=== PATIENT | male | born 1940 | race Caucasian/White ===

== ENCOUNTER 2016-05-12 02:02 | Inpatient (IN) | payer MEDICARE, OTHER ==
[~2016-05-12] VITALS: Ht 180.3 cm; Wt 82.5 kg
[2016-05-12] VITALS (24 sets, daily range): BP systolic 109–198; BP diastolic 62–122; PULSE 52–109; RESP 14–20; O2SAT 95–99
[2016-05-12] MEDS ORDERED: MeTOProlol 1 mg/mL 5 mL Inj ONE (02:14)
[2016-05-12] MEDS ORDERED: Nitroglycerin 2% 1 Gm Ointment TOPICAL ONE (02:14)
[2016-05-12] MEDS ORDERED: Heparin 25,000 Unit/500 mL 0.45% NS Premix IV ONE (02:14)
[2016-05-12] MEDS ORDERED: Nitroglycerin 50,000 mcg/250 mL D5W Premix IV ONE ×2 (02:14→02:42)
[2016-05-12] MEDS ORDERED: Ondansetron 2 mg/mL 2 mL Inj ONE ×2 (02:15→03:27)
[2016-05-12] MEDS ORDERED: Tirofiban 12.5 mg/250 mL NS Premix IV ONE (02:15)
[2016-05-12] MEDS ORDERED: Heparin 5,000 Unit/mL Inj ONE (02:16)
[2016-05-12] MEDS ORDERED: 0.9% Sodium Chloride 1,000 ML IV ONE ×2 (02:16→05:50)
--- NOTE | 2016-05-12 02:22 | ED.REPORT ---
HPI-Chest Pain 40 and Over Date of Service May 12, 2016 ED Provider: Aaron Cheek MD Patient is a 75 year old male with a history of coronary artery disease, hypertension, and diabetes mellitus who presents to the ED after he awoke from sleep with back pain 30 minutes prior to arrival. He reports radiation of his pain to his left shoulder but denies any actual chest pain. The patient states that he had a similar brief episode last week, which resolved. His pain is similar to what he experienced 20 years ago when he was previously diagnosed with angina. He reports associated shortness of breath but denies nausea, vomiting, or diaphoresis. He became nauseated shortly after arrival but did not vomit. Nursing Notes Stated Complaint: POSS ANGINA Chief Complaint: Chest Pain Nursing Notes Reviewed: Yes Allergies: Coded Allergies: EMIR Inhibitors (Verified Adverse Reaction, Intermediate, 05/12/16) cough General Time Seen by MD: 02:18 Chief Complaint Back pain Hx Obtained From: Patient Arrived By: Walk-in Sudden in Onset?: No Onset Occurred: 16 - 30 minutes ago Symptom Duration: Since onset Location: : Back Quality: Painful Radiation: : Shoulder left Severity: Current: Moderate Severity: Maximum: Severe Recent Healthcare: No recent hospitalization Similar Sx Previous: Yes Past Medical History Past Medical History coronary artery disease (?with prior MO and stenting 20 years ago per patient) Reports: Coronary artery disease, Diabetes mellitus, Hypertension, Denies: Stroke Past Surgical History cardiac stent 20 years ago Smoking History Never Smoker Social History Alcohol Use: Denies alcohol use Other Social History: Good social support, , Local resident Ambulatory Status Independent Review of Systems Respiratory: Reports: Shortness of breath, Denies: Non-productive cough Cardiovascular: Denies: Chest pain GI: Denies: Nausea, Vomiting Musculoskeletal: Reports: Back pain, Extremity pain Skin: Denies Diaphoresis Complete sys rev & neg: except as marked. Physical Exam Initial Vital Signs Vital Signs (First) Date Time Temp Pulse Resp B/P Pulse Ox O2 Delivery O2 Flow Rate FiO2 05/12/16 02:03 36.1 93 16 185/122 96 Room Air Initial VS: Reviewed Head / Eyes: Atraumatic, Normocephalic, PERRL ENT: Conjunctiva normal, No scleral icterus Neurologic: Alert, Oriented, Nonfocal Psychiatric: Mood/affect normal, Behavior normal, Normal thought content General/Constitutional: Awake, Alert Appearance / Presentation: Positive: Ill appearing/not toxic, Pale Respiratory / Chest: Breath sounds NL, Breath sounds = bilat, No respiratory distress, No rales, No rhonchi, No wheezing, No chest tenderness Cardiovascular: Heart rate NL, Regular rhythm, Heart sounds NL, No murmurs Abdomen: Soft, Non-tender Neck: Supple, No JVD Lower Extremity / Pelvis / MS: No swelling, No edema Skin: Warm Color / Condition: Positive: Diaphoresis present Upper Extremity / MS: No swelling, No edema Interpretation & Diagnostics Lab Results Interpretation Result Diagram: 05/12/16 0220 05/12/16 022 Test 05/12/16 02:20 White Blood Count 12.3th/mm3 (3.8-10.1) Red Blood Count 4.41mil/mm3 (4.40-5.80) Hemoglobin 14.5g/dL (13.8-17.2) Hematocrit 43.1% (41.0-50.0) Mean Corpuscular Volume 97.7fL (81-100) Mean Corpuscular Hemoglobin 32.9pg (27.0-35.0) Mean Corpuscular Hemoglobin Concent 33.6% (32.0-37.0) Red Cell Distribution Width 12.7% (12.3-15.4) Platelet Count 186bil/L (150-400) Neutrophils (%) (Auto) 36.7% (40-74) Lymphocytes (%) (Auto) 53.0% (14-46) Monocytes (%) (Auto) 7.5% (4-12) Eosinophils (%) (Auto) 2.2% (0-5) Basophils (%) (Auto) 0.4% (0-3) Prothrombin Time 10.2sec (8.1-12.5) Prothromb Time International Ratio 0.95ratio Activated Partial Thromboplast Time 23.8sec (22.8-33.0) Sodium Level 144mEq/L (134-144) Potassium Level 3.7mEq/L (3.5-5.2) Chloride Level 104mEq/L (97-108) Carbon Dioxide Level 25mmol/L (18-29) Blood Urea Nitrogen 27mg/dL (8-27) Creatinine 1.27mg/dL (0.76-1.27) Estimat Glomerular Filtration Rate 59mL/min (>59) Glucose Level 165mg/dL (60-99) Calcium Level 9.5mg/dL (8.5-10.1) Magnesium Level 1.2mg/dL (1.6-2.6) Total Bilirubin 0.4mg/dL (0.0-1.2) Aspartate Amino Transf (AST/SGOT) 21U/L (0-50) Alanine Aminotransferase (ALT/SGPT) 18U/L (0-44) Alkaline Phosphatase 68U/L (25-160) Troponin T 0.010ug/L (0.0-0.011) Pro-B-Type Natriuretic Peptide 168pg/mL (0-376) Total Protein 7.3g/dL (6.4-8.4) Albumin 4.4g/dL (3.4-5.0) Hold Warner Top Tube Received (Received) ECG Interpretation ECG Interpretation: Inferior-posterior wall acute STEMI. Atrial fibrillation, Rate 102 Time: 02:14 Interpreted by: ED physician X-Ray Chest Interpretation View: Portable Interpretation / Wet Read by: Wet read ED physician NL X-Ray Chest Findings: No infiltrate, Normal mediastinum, No acute disease Re-Eval/Medical Decision Med Decision/Clinical Course 75-year-old man with a remote history of angina or MO that presented with atypical pain and back pain primarily. He presents now with the same but with obvious changes of inferior posterior wall transmural MO. Cath team was summoned and was here promptly. He is transported to the clam bed laborer for intervention. X-ray shows a normal-appearing mediastinum and no evidence of dissection. Heparin was begun after that was known to be normal. His pain is improved to nearly gone was some residual shoulder pain only. Blood pressure is improved from quite hypertensive to a fairly normal value by the time of transfer. He received metoprolol but no nitroglycerin, given the right-sided nature of his MRI. He received Plavix aspirin and heparin. He experienced a run of sustained V. tach without syncope and that was terminated with lidocaine. He was then given amiodarone 150 mg. He has had a few nonsustained V. tach runs of three and four beats immediately after the initial episode. At that point, he is transported to the clam bed laborer. His troponin initially is normal. Magnesium was quite low at 1.2. This was communicated to the Tile Layer Helper. Other labs basically unremarkable. Source of Hx: Old records Time of Eval: 02:20 Re-Evaluation/Progress Note: Informed the patient that he is having an acute MO. The construction recruiter has been called and he will go the clam bed laborer. Patient understands and agrees with this plan. All questions were addressed. Time of Eval: 02:44 Re-Evaluation/Progress Note: Patient is in V-tach. Pads placed. Patient reports feeling light headed. Given Amiodarone and Lidocaine, now patient is only intermittently in V-tach. Patient now states that he has previously had a MO and cardiac stenting 20 years ago, which he previously states was what he experienced with angina. Time of Eval: 02:55 Re-Evaluation/Progress Note: Patient to clam bed laborer. Consultation #1: Referral / Consult Name: Isma Silva MD Consulted With: Cardiology Call Returned at: 02:16 Sugar Mixer: Will see patient, Agrees with eval, Agrees with plan, Requested clam bed laborer Note: Spoke with Dr. Silva, construction recruiter, about the patient's EKG. He is enroute to the ED and requests the clam bed laborer. Consultation #2: Referral / Consult Name: Isma Silva MD Consulted With: Cardiology Call Returned at: 02:40 Note: Dr. Silva is present at bedside. Counseled Regarding: Diagnosis, Lab results, Need for admission Discharge & Departure Primary Impression: Acute ST elevation myocardial infarction (STEMI) Involved coronary artery: unspecified coronary artery Qualified Code: I21.3 - ST elevation (STEMI) myocardial infarction of unspecified site Additional Impression: Ventricular tachycardia Disposition: ADMITTED TO HOSPITAL Discharge Condition All VS Reviewed: Yes Condition: Stable Referrals: OTHER,PHYSICIAN Crit Care Except Billable Proc Time Spent: 30-74 minutes Services Performed: Patient management by me, Time spent at bedside, Reviewing test results, Reviewing imaging, Discussing patient care, Documentation in record, Time with fam/surrogate Scribe Attestation Portions of this note were transcribed by Rosalva Brown. I, Dr. Cheek personally performed the history, physical exam and medical decision-making; I reviewed and confirmed the accuracy of the information in the transcribed note. Signed by: Bryson Cleary, 05/12/2016 0258 copies to: OTHER,PHYSICIAN Aaron Cheek MD May 12, 2016 02:22 Rosalva Brown May 12, 2016 02:26
[2016-05-12] MEDS ORDERED: fentaNYL-PF 50 mCg/mL 2 mL Inj ONE ×3 (02:24→04:30)
[2016-05-12 02:29] LABS: BASOPHILS % (AUTO) 0.4 % (0-3); EOSINOPHILS % (AUTO) 2.2 % (0-5); MONOCYTES % (AUTO) 7.5 % (4-12); Mean Corpuscular Hemoglobin 32.9 pg (27.0-35.0); Mean Corpuscular Volume 97.7 fL (81-100); NEUTROPHILS % (AUTO) 36.7 % (40-74); Platelet Count 186 bil/L (150-400)
[2016-05-12] MEDS ORDERED: Heparin 1,000 Units/500 mL NS Premix IV ONE (02:42)
[2016-05-12] MEDS ORDERED: 0.9% Sodium Chloride 1,000 ML ONE (02:42)
[2016-05-12] MEDS ORDERED: Heparin 5,000 Units/500 mL NS Premix IV ONE (02:43)
[2016-05-12] MEDS ORDERED: Heparin 1,000 Unit/mL 10 mL Inj ONE (02:43)
[2016-05-12] MEDS ORDERED: NitroPRUSSIDE 25,000 mCg/mL 2 mL Inj IV ONE (02:43)
[2016-05-12] MEDS ORDERED: 0.9% Sodium Chloride 250 ML ONE (02:43)
[2016-05-12 02:52] LABS: INR 0.95 ratio
[2016-05-12 03:04] LABS: TROPONIN T 0.01 ug/L (0.0-0.011)
[2016-05-12 03:21] LABS: Magnesium 1.2 mg/dL (1.6-2.6)
[2016-05-12] MEDS ORDERED: Atropine 1 mg/10 mL (Code) Syringe ONE (03:24)
[2016-05-12] MEDS ORDERED: Amiodarone 150 mg/100 mL D5W Premix IV ONE (03:33)
[2016-05-12] MEDS ORDERED: Atropine 1 mg/10 mL (Code) Syringe IVPUSH PRN (05:50)
[2016-05-12] MEDS ORDERED: Ondansetron 2 mg/mL 2 mL Inj IVPUSH PRN (05:50)
[2016-05-12] MEDS ORDERED: Sodium Chloride LOK Flush 10 mL Syringe IVFLUSH PRN (05:50)
[2016-05-12] MEDS ORDERED: 0.9% Sodium Chloride 250 ML BOLUS IV PRN (05:50)
--- NOTE | 2016-05-12 06:46 | NUR ---
Admit note: pt received into room 2016 at 0530 per bed from laborer yard. Pt is awake and alert at bedside accompanied by Dr Silva. Bedside report received from laborer yard staff mor barbosa. O2 was applied to pt For SPpo2 of 91% 2L/M per NC spo2 increased to 99%. Pt instructed to keep right leg straight. Pt was able to void per urinal.
--- NOTE | 2016-05-12 07:56 | CS94 ---
[address] [address] DIAGNOSTIC CARDIAC CATHETERIZATION PATIENT: ROSS HAND : 1940 MR #: [id number] ADMIT: 05/12/2016 JOB ID: [id number] PROCEDURE NOTE--CARDIAC CATHETERIZATION LABORATORY:: DATE OF PROCEDURE: Thursday, May 12, 2016. RESEARCH KENNEL SUPERVISOR: Isma Silva MD PROCEDURES: 1. Coronary Angiogram--Emergent. 2. Percutaneous Ccoronary Intervention (PCI): a. ROMAINE of Distal, Mid and Proximal RCA. CLINICAL DETAILS: This 75-year-old man presented to the Emergency Department 1 hour after the onset of interscapular back pain. ECG showed marked inferior ST elevation with ST depression in Leads V1, and V2; and with atrial fibrillation. In the Emergency Department he had sustained ventricular tachycardia at 133 BPM without loss of consciousness. He has a history of a prior angioplasty in [place] probably in the . PROCEDURAL DETAILS: I evaluated him in the Emergency Department. I discussed the findings, impressions, and management considerations with him and his including recommendation for emergent coronary angiogram, and anticipated PCI. We discussed the procedure including possible risks and complications. In the emergent setting we discussed bleeding, arrhythmia, and injury to kidneys. We discussed possible more serious complications including the life-threatening risk of his illness and the risk of stroke, heart attack, --or Others. After discussion and questions, he signed informed consent to proceed. He was brought to the Catheterization Laboratory where he was prepped sterilely and draped. CORONARY ANGIOGRAM: Arterial access was obtained without difficulty in the right common femoral artery using fluoroscopic localization over the femoral head and modified Seldinger technique to insert a 10 cm 6-Montenegrin side-arm sheath. Catheters were advanced and exchanged over a long 0.035 inch J tipped guide wire. First the left coronary artery was imaged using a 6-Montenegrin JL-4 catheter; and then the right coronary artery was imaged using a 6-Montenegrin JR-4 guide catheter. LV not entered. PCI OF DISTAL MID, AND PROXIMAL RCA: The diagnostic images were reviewed. Decision was made to proceed with emergent PCI of the culprit occluded Distal RCA. In the Emergency Department he had received Aspirin 325 mg chewed; as well as Heparin IV bolus; and Lidocaine 100 mg IV; and Amiodarone 150 mg IV. During the Interventional procedure he received bolus Heparin IV to achieve therapeutic ACT; as well as loading dose of Prasugrel 60 mg p.o.; and aliquots of NTG IC as needed. He had recurrent sustained ventricular tachycardia at 133 BPM without loss of consciousness which was treated with additional amiodarone 150 mg IV. The JR-[address] was used for the Intervention. The lesion was crossed without difficulty with a BMW wire--0.014 inch x 190 cm--which was placed in the Distal Right Posterolateral Branch. The artery was opened with a Trek Balloon--2.5 x 15 mm-inflated across the site of occlusion to 6 atmospheres. The artery was opened. His back pain cleared. There was no further ventricular tachycardia. ST-segment elevation on monitor leads resolved. Regarding door to balloon time , note that extra time was required in the Emergency Department to manage his sustained ventricular tachycardia; and also for decision making regarding the question that developed regarding possible aortic dissection because of his back pain. Estimated door to balloon time was 86 minutes. STENT: After the artery was opened there was a 95% tubular residual distal RCA lesion at the site of initial occlusion. This was treated with a Xience Stent--2.75 x 18 mm--deployed across the lesion at 16 atmospheres. Attention was turned to a diffuse distal bifurcation 80% lesion at the crux with TIARA-3 flow. I elected not to treat this complicated lesion at that this time. Next attention focused on an apparent filling defect within the stent. This was monitored, but appeared worse over time, and despite balloon inflation. It was treated with a 2nd stent overlapping proximally to cover this defect as well as proximal irregularity using a Xience Stent--2.75 x 18 mm--deployed at 18 atmospheres. The initial Stent had been post dilated with a noncompliant Trek NC Balloon--3.0 x 12 mm--inflated to 18 atmospheres. Next attention was turned to the a diffusely diseased segment of Mid and Proximal RCA which was highly irregular, but appeared more irrregular now. I elected to treat this with a Xience Stent--3.5 x 28 mm--which was deployed to cover this 70% narrowed and irregular area in the Mid and Proximal RCA to near the RCA ostium. This Stent was post dilated with several inflations of a noncompliant Trek NC balloon--4.0 x 12 mm--inflated to 18 atmospheres. There was an excellent final angiographic result with no residual lesion, TIARA-3 flow, and no angiographic complication evident. Procedure without difficulty. Patient tolerated procedure well. No complications. A side-arm sheath angiogram showed adequate access for a closure device. Arterial hemostasis was obtained without difficulty using a Perclose device. The patient was transferred, stable, improved, and pain free from the Catheterization Laboratory to the CCU for ongoing care including by the primary Hospitalist service. I discussed the procedure, findings, and recommendations with the patient and his ; as well as with the Hospitalist Team; and with Cardiology. FINDINGS: 1. LMCA: The left main coronary artery has no obstructive disease; but there is moderate diffuse atherosclerotic plaquing. 2. LAD: The left anterior descending coronary artery tapers distally to reach the apex as a faint vessel. There is a diffuse 80% proximal lesion at the first septal and at the takeoff of a moderate to large (2.5 mm) diagonal. 3. LCX: The left circumflex coronary artery is a large nondominant vessel with a diffuse 70-80% Mid LCX lesion with TIARA-3 flow. 4. RCA: Dominant. The right coronary artery is a very large vessel with a large posterolateral branch, and a large PDA branch that reaches the apex. The RCA has extensive disease throughout. Initially the artery is occluded distally after the acute margin. There is also 70% diffuse Proximal, and Mid RCA disease; and a diffuse lesion Distal to the culprit occlusion, including a tubular 80% narrowing at the at the crux at the bifurcation of PDA and PLB. CONCLUSIONS: 1. PCI with ROMAINE of Distal RCA (Xience 2.75 x 18 mm; then Xience 2.75 x 18 mm); and Xience ROMAINE of Mid and Proximal RCA (3.5 x 28 mm). 2. ACS--Inferior STEMI; with sustained Ventricular Tachycardia. 3. Coronary Artery Disease (CAD)--3-Vessel CAD including Proximal LAD at bifurcation of Diagonal; and Mid LCX; and severe diffusely diseased RCA with a culprit distal RCA occlusion. RECOMMENDATIONS: 1. Aspirin--Indefinitely. 2. Prasugrel--Plan 1 year if well tolerated including with ongoing cardiology follow-up; and to consider lifetime DAPT in view of long stented segments and severe diffuse disease. I discussed with the patient and his the critical importance of mandatory dual antiplatelet therapy and not to miss Plavix for any reason without immediate Cardiology consultation. 3. Echo. 4. OMT--guideline directed optimal medical therapy including aspirin, Prasugrel, statin, beta-kraig, and EMIR inhibitor. 5. Replete low Mg. 6. Hydrate; and monitor I and O and Creatine post contrast. 7. Follow-Up to consider revasculariztion of his Three Vessel CAD including residual Distal RCA; and Proximal LAD; and LCX. May consider staged PCI, or CAB. LEVI
--- NOTE | 2016-05-12 08:59 | CONS ---
[address] [address] CONSULTATION REPORT PATIENT: ROSS HAND : 1940 MR# : [id number] ADMIT: 05/12/2016 JOB ID: [id number] CARDIOLOGY CONSULTATION NOTE--INITIAL CRITICAL CARE EVALUATION (EMERGENCY DEPARTMENT): DATE OF SERVICE: Thursday, May 12, 2016 EVALUATING PHYSICIAN: Cardiology--Isma Silva MD PROBLEMS: 1. Acute coronary syndrome (ACS): a. STEMI--Acute inferior ST-elevation myocardial infarction. b. Atypical symptoms--primarily interscapular back pain; ischemic time 1 hour until presentation. 2. CORONARY ARTERY DISEASE (CAD): a. History of prior angioplasty twice--by Dr. Nye in ; approximately in the (No details available).. CAD RISK FACTORS: 1. Diabetes--Metformin treated; with sequelae including peripheral neuropathy. 2. Hypertension--Treated. 3. Hyperlipidemia--Statin treated. 4. Cigarettes--Lifetime Nonsmoker. 5. Family History: Noncontributory. CHIEF COMPLAINT: 1. "STEMI."--Called for District Manager Activation. 2. Back Pain. 3. Abnormal ECG--Inferior ST Elevation. HISTORY OF PRESENT ILLNESS: EMERGENCY DEPARTMENT: This 75-year-old man had his drive him to the Emergency Department this morning 1 hour after the onset of interscapular back discomfort that he reports moderate to severe in intensity; like his prior "heart attack" many years ago. The pain radiates around his shoulders and then there may be some less prominent anterior chest discomfort. Now his chest discomfort has moderated somewhat. In the Emergency Department, he was treated with aspirin 325 mg chewed; and heparin IV bolus. Because of his prominent back pain (which was not ripping or tearing in quality) a diagnosis of aortic dissection was considered, but thought not likely; including because the Chest x-ray did not show widened mediastinum. In the Emergency Department, he also had sustained ventricular tachycardia at 130-150 BPM, which was mostly well tolerated with some lightheadedness. He received lidocaine 100 mg IV; and amiodarone 150 mg IV. PAST CARDIAC HISTORY: He has been generally doing well, without known active heart disease. He is quite active for his age including carrying wood for the fireplace in a wheelbarrow up and down several steps to the deck He has no effort-related symptoms, and no effort limitation. He does not have any other preceding anginal symptoms. He does not have symptoms of heart failure such as nocturnal dyspnea or edema. He does not have history of arrhythmia such as atrial fibrillation or other arrhythmic symptoms including tachy palpitations, presyncope or syncope. He reports he had a heart attack--probably in the --treated by Dr. Nye at [facility]. He says that after an initial angioplasty was done, he had to return sometime later for a second procedure. He understands he had angioplasty without stents. He was followed by Dr. Nye; and last saw him about five years ago. He has not had any active cardiac issues in recent years. Regarding other possible underlying vascular disease, he does not have history of CVA or current symptoms of TIA. No claudication. Regarding possible dual antiplatelet therapy, he reports he would be reliable to take mandatory medicines if needed; he has no anticipated upcoming surgery; he has no current bleeding symptoms. ALLERGIES: 1. LISINOPRIL-Intolerant due to a cough. 2. No known drug allergies. 3. I elicit no history of allergy to medical contrast or to seafood, fish or iodide. MEDICINES: He does not know all as medicines but they include: 1. Atenolol for hypertension. 2. Simvastatin last taken last night--probably 20 mg. 3. Metformin b.i.d. 4. ASA 81 mg daily. 5. Doxazosin--For HTN. He holds the dose if it lowers his blood pressure too much. PAST MEDICAL HISTORY: 1. Possible Chronic renal insufficiency--He saw a heel nail rasper in [place] in the past. REVIEW OF SYSTEMS: I questioned him and his in the emergent setting about a 13 point review of systems which is unremarkable, noncontributory, or negative except as noted includin. No history of thyroid disorder. 2. No history of lung disorder. 3. No history of GI disorder including jaundice or ulcer. 4. He has a history of hepatitis A in the remote past. 5. He has a history of some indigestion which is different from his current symptoms. PERSONAL AND SOCIAL HISTORY: Cigarettes--Lifetime Nonsmoker. ETOH--He reports he drinks; but not large amounts. 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 Family--He lives with his ; and they are planning an extensive cruise(25 days) by ship to [place] and [place] at the end of April. FAMILY HISTORY: Status of premature coronary disease in the family unclear in the emergent setting. PHYSICAL EXAMINATION: GENERAL APPEARANCE: Pleasant elderly man who appears mostly comfortable in the emergency department. VITAL SIGNS: Hypertensive with Blood pressure 168/95, heart rate 77 and irregularly irregular with atrial fibrillation on telemetry, respiratory rate 18, unlabored; SpO2 95%. NEUROLOGIC AND MENTAL STATUS: No overt focal neurologic defect noted. He is alert, oriented, appropriate and conversant. HEENT : PERRL. Conjunctivae pink. Sclerae not icteric. Mouth and mucous membranes intact with Mallampati 4. NECK: Carotid upstroke intact bilaterally without bruit. Jugular venous pressure unremarkable. Examined supine. No palpable thyromegaly. No palpable cervical lymphadenopathy. LUNGS: Clear to auscultation bilaterally. Examined supine. CARDIAC: No chest wall tenderness. Otherwise unremarkable cardiac examination with no loud murmur. ABDOMEN: Flat and otherwise unremarkable without tenderness, mass, hepatosplenomegaly or bruit of abdominal aortic aneurysm. EXTREMITIES: Bilateral femoral pulses intact; and the dorsalis pedis pulses are present bilaterally. DIAGNOSTIC STUDIES: ELECTROCARDIOGRAM: I reviewed the emergency department ECG which shows atrial fibrillation, with a controlled ventricular rate 77 BPM. There is marked inferior ST elevation with ST depression in lead V2. There are deep Q-waves which are consistent with inferior myocardial infarction; and consistent with his history of prior myocardial infarction. CHEST X RAY: I reviewed the chest x-ray film which shows cardiomegaly but no pulmonary venous hypertension or other findings of heart failure. Regarding the question of aortic dissection the mediastinum does not appear widened. LABORATORY: Laboratory reports returned during the procedure. They include: CBC includes WBC 12,300, with hemoglobin 14.5, hematocrit 45.1, normal indices and platelet count 186,000. Chemistries include potassium 3.7, BUN 27, creatinine top normal 1.27 with estimated GFR 59. Glucose 165. Magnesium very low 1.2. Unremarkable liver function tests and initial troponin negative less than 0.010 as well as BNP not elevated 168. ASSESSMENT: I discussed my findings, impressions, and management considerations with the patient and his as well as with the Emergency Department physician; and later with the admitting Hospitalist Service includin). ACUTE CORONARY SYNDROME; STEMI; inferior myocardial infarction with sustained ventricular tachycardia:. He presents with atypical symptoms(back pain) that raised a question of aortic dissection; but the overall picture is most consistent with myocardial infarction with primarily back pain and overt inferior ST elevation. His clinical course is complicated by sustained ventricular tachycardia. However, this resolved spontaneously and/or with pharmacologic therapy; and was overall well tolerated. I discussed the recommendation to proceed to emergent cardiac catheterization and anticipated percutaneous coronary intervention. The clinical scenario suggests occlusion of the right coronary artery. The ECG suggests that his history of prior myocardial infarction was an inferior infarct with Q-waves. RECOMMENDATIONS: 1. Cardiac catheterization and anticipated PCI-Emergent; we proceeded to the Catheterization Laboratory. 2. Admit to Hospitalist Service. 3. Echocardiogram. 4. OMT--guideline directed optimal medical therapy including dual antiplatelet therapy, beta-kraig, statin and later EMIR inhibitor. 5. Ongoing evaluation and monitoring--including for the question of aortic dissection (appears unlikely). 6. Replete low Mg++(note a repeat Mg level confirmed low Mg).. ECHO: I briefly reviewed selected images at the bedside as the the Echo was being done. Note overall moderate to severely decreased global LVSF with estimated EF=35-40%. Large Inferior and InferoLateral akinesis c/w his two RCA infarcts. MTDD
[2016-05-12] MEDS ORDERED: Lidocaine PF 1% 5 mL Inj ONE (09:22)
[2016-05-12] MEDS ORDERED: Amiodarone 50 mg/mL 3 mL Inj ONE (09:22)
--- NOTE | 2016-05-12 09:31 | DRSVH ---
PROCEDURE: X-RAY CHEST ONE VIEW, PORTABLE ([id number]) INDICATIONS: CHEST PAIN TECHNIQUE: One view of the chest was acquired. COMPARISON: None. FINDINGS: Surgical changes and devices: None. Lungs and pleura: No pleural effusions or pneumothorax. Lungs are clear. Mediastinum: Mediastinal contours appear normal. Heart size is normal. Bones and chest wall: No suspicious bony lesions. Overlying soft tissues appear unremarkable. IMPRESSION: No acute cardiopulmonary disease. Dictated by: Pk COBB Interpreted: Blanca Stanley MD on 05/12/2016 at 9:31 Transcribed by: ADRIAN on 05/12/2016 at 9:31 Approved by: Blanca Stanley M.D. on 05/12/2016 at 16:11
[2016-05-12] MEDS ORDERED: Magnesium Sulf 4 Gm/100 mL H2O 4 GM in IV Premix 1 EACH IV ONE (09:40)
--- NOTE | 2016-05-12 14:19 | DRSVH ---
[facility] [address] [place] [address] Echocardiogram Report Name: ROSS HAND MStudy Date: Height: 71 in Hospital Exam Location: [facility] Weight: 182 lb Gender: Male BSA: 2.0 m2 : 1940 Age: 75 yrs BP: 144/76 mmHg Reason For Study: STEMI History: SD Ordering Physician: Performed By: Diana Reina Interpretation Summary 1) Mild concentric ventricular hypertrophy with normal size and severely reduced systolic function (EF 25-30%). 2) Dyskinesis of the entire apex, akinesis of the posterolateral wall, mid to distal inferior wall, and apical anterior wall, and severe hypokinesis of the anterolateral wall. 3) Normal right ventricular size and function. 4) No significant valvular abnormalities. 5) Mildly dilated aortic root (diameter 4.4cm) and ascending aorta (diameter 4.1cm) 6) Findings consistent with ischemic cardiomyopathy. 7) No prior Echo available for comparison. Procedure: A two-dimensional transthoracic echocardiogram with color flow and Doppler was performed. The study quality was technically adequate. There is no prior echocardiogram noted for this patient. A contrast injection of Definity was performed to improve assessment of LV function. No complications noted with contrast. The subcostal views were not obtained due to lack of acoustic window. Left Ventricle: The left ventricle is normal in size. There is mild concentric left ventricular hypertrophy. There is no thrombus. The ejection fraction is estimated to be 25-30%. Left ventricular systolic function is severely reduced. Dyskinesis of the entire apex, akinesis of the posterolateral wall, mid to distal inferior wall, and apical anterior wall, and severe hypokinesis of the anterolateral wall. Assessment of diastolic parameters suggests a pseudonormalization pattern, consistent with elevated filling pressures. Right Ventricle: The right ventricle is normal in size and function. Atria: The left atrium is mildly dilated. Right atrial size is normal. The interatrial septum is intact with no evidence for an atrial septal defect. There is no Doppler evidence for an interatrial shunt. Mitral Valve: The mitral valve leaflets appear borderline thickened, but open well. The mitral valve leaflets are slightly calcified. There is trace mitral regurgitation. Aortic Valve: The aortic valve is normal in structure and function. No aortic regurgitation is present. Tricuspid Valve: The tricuspid valve is normal in structure and function. There is a trace or physiologic amount of tricuspid regurgitation. Right ventricular systolic pressure is estimated to be least 19 mmHg plus the clinically estimated CVP which cannot be estimated on this exam. Pulmonic Valve: The pulmonic valve is normal in structure and function. There is no pulmonic valvular stenosis. There is a trace or physiologic amount of pulmonic regurgitation. Great Vessels: The aortic root is mildly dilated. The ascending aorta is mildly enlarged. The aortic arch could not be visualized. The inferior vena cava was not visualized. Pericardium/ Pleura There is no pericardial effusion. MMode/2D Measurements & Calculations LVIDd: 5.3 cm RA long axis: 5.1 cm LVOT diam LVIDs: 4.7 cm LA A2 area: 20.2 cm FS: 12.1 % LA A4 area: 21.6 cm RA area: 14.6 cm Ao root diam EPSS: 0.96 cm LA length (vol): 5.2 cm RA vol: 35.2 ml IVSd: 1.2 cm LA vol: 70.9 ml RA : 17.4 ml/m2 Aortic Jxn LVPWd: 1.1 cm LA vol index asc Aorta : 35.0 ml/m2 Diam: 4.1 cm EDV(MOD-sp2) LV soto. diameter/BSA LV sys. diameter/BSA RVD1 (basal) : 123.5 ml (cm/m^2): 2.6 (cm/m^2): 2.3 : 3.7 cm TAPSE: 2.1 cm Doppler Measurements & Calculations Ao V2 max MV E max rakesh MV E/A: 0.97 TR max rakesh : 105.3 cm/sec : 65.7 cm/sec Med Peak E' Rakesh : 215.9 cm/sec Ao max PG MV A max rakesh TR max PG : 4.4 mmHg : 67.9 cm/sec E/E' med: 15.6 : 18.7 mmHg Ao mean PG MV P1/2t: 70.1 msec Lat Peak E' Rakesh PA V2 max : 56.6 cm/sec LVOT Max Rakesh E/E' lat: 7.4 PA mean PG : 53.9 cm/sec E/e' average: 11.5 : 0.68 mmHg Pulm A Revs Dur PA Accel Time COLBY(I,D): 2.0 cm : 0.11 sec sev ratio MV A dur: 0.12 sec MV dec time MV P1/2t max rakesh Ao V2 mean LV V1 max PG : 0.24 sec : 75.7 cm/sec MVA(P1/2t): 3.1 cm2 Ao V2 VTI: 24.6 cm LV V1 VTI COLBY(V,D): 2.0 cm2 : 13.1 cm PA V2 mean COLBY indexed to BSA Pulm A Revs Dur - MV A : 39.1 cm/sec (cm^2/m^2): 1.0 Dur: -0.01 msec Reading Physician:02:18 PM
--- NOTE | 2016-05-12 17:33 | PCM.HPMED ---
Subjective Date of Service May 12, 2016 Primary Provider: Admitting Physician: Isma Silva MD Primary Care Physician: Other,Physician Attending Physician: Isma Silva MD Admit Status: From the Emergency Department, Admit to [facility] Team Chief Complaint: 75-year-old man coronary artery disease, type II diabetes with nephropathy, presents with chest pain, found to have acute ST elevation PA History of Present Illness: Patient has a long-standing history of coronary artery disease. First experienced 25 years ago. Typical angina is infrascapular dull pain. He has not experienced angina recently, but had one episode of transient chest pain approximately 2 weeks ago. On the day of admission he awakened during the night with recurrence of similar chest pain but greater intensity. It is localized to the posterior scapular region, with mild radiation to the front of the chest. There is no associated diaphoresis, nausea or arm radiation. The pain persisted until he arrived to the emergency department and received active anginal therapy. Patient has undergone coronary catheterization and has diffuse disease but underwent drug-eluting stent placement in the RCA. He is currently asymptomatic except for discomfort from lying on his back. Allergies Coded Allergies: EMIR Inhibitors (Verified Adverse Reaction, Intermediate, 05/12/16) cough PM # coronary artery disease - followed by Dr. Nye at 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 [employer]) Additional Information Full code discuss with patient Exam Vital Signs Vital Sign - Last Date Time Temp Pulse Resp B/P Pulse Ox O2 Delivery O2 Flow Rate FiO2 05/12/16 17:11 57 05/12/16 12:00 36.6 20 134/85 97 Nasal Cannula 2.00 Intake and Output 05/11/16 05/11/16 05/12/16 Cumulative From/Thru 15:00 23:00 07:00 05/12/16 02:03 - 05/12/16 06:49 Output Total 500 ml 500 ml Balance -500 ml -500 ml Output Urine Total 500 ml 500 ml Exam General: Elderly man lying flat in the head, no acute distress HEENT: sclerae anicteric, oral mucosa moist Neck: Difficult to assess jugular veins, neck is supple Chest: clear to auscultation, no rales Cardiac: S1S2, no murmur, Abdomen: BS normal, non-tender; right groin with bandage minimal oozing. No significant hematoma. Extremities: No pedal edema Neuro: A&O, cranial nerves symmetric, motor strength 5/5, coordination normal; light touch sensation intact in feet Lab and Diagnostics Labs Troponin T 05/12 at 02:20 - 0.01 Result Diagram: 05/12/16 0220 05/12/16 0740 12-lead ECG SR at 65, Qw III, II, F; minimal ST elevation in III, QTC 480, T-wave inversion V5-V6 Cardiac Echo Impressions Echocardiogram Report Name: ROSS HAND Study Date: Height: 71 in Hospital Exam Location: [facility] Weight: 182 lb Gender: Male BSA: 2.0 m2 : 1940 Age: 75 yrs BP: 144/76 mmHg Reason For Study: STEMI History: PA Ordering Physician: Performed By: Diana Reina Interpretation Summary 1) Mild concentric ventricular hypertrophy with normal size and severely reduced systolic function (EF 25-30%). 2) Dyskinesis of the entire apex, akinesis of the posterolateral wall, mid to distal inferior wall, and apical anterior wall, and severe hypokinesis of the anterolateral wall. 3) Normal right ventricular size and function. 4) No significant valvular abnormalities. 5) Mildly dilated aortic root (diameter 4.4cm) and ascending aorta (diameter 4.1cm) 6) Findings consistent with ischemic cardiomyopathy. 7) No prior Echo available for comparison. . Additional Diagnostics: Coronary catheterization: FINDINGS: 1. LMCA: The left main coronary artery has no obstructive disease, but there is moderate diffuse atherosclerotic plaquing. 2. LAD: The left anterior descending coronary artery tapers distally to reach the apex as a faint vessel. There is a diffuse 80% proximal lesion at the first septal and at the takeoff of a moderate to large (2.5 mm) diagonal. 3. LCX: The left circumflex coronary artery is a large nondominant vessel with diffuse 70-80% mid LCX lesion with TIARA-3 flow. 4. RCA: Dominant. The right coronary artery is a very large vessel with a large posterolateral branch and a large posterolateral branch that reaches the apex. Initially the artery is occluded distally after the acute margin. There is 70% diffuse proximal and mid vessel disease distal to the culprit occlusion. There is a tubular 80% narrowing at the crux bifurcation of PDA and PLV. CONCLUSIONS: 1. PCI with ROMAINE of distal RCA (Xience 2.75 x 18 mm; then Xience 2.75 x 18 mm); and Xience ROMAINE of mid and proximal RCA (3.5 x 28 mm). 2. ACS--inferior STEMI; with sustained ventricular tachycardia. 3. Coronary artery disease (CAD)--3-vessel disease including proximal LAD at bifurcation of diagonal; and mid LCX; and severe diffusely diseased RCA with a culprit distal RCA occlusion. RECOMMENDATIONS: 1. Aspirin--indefinitely. 2. Prasugrel--plan 1 year. If well tolerated including with ongoing cardiology follow up; and to consider lifetime DAPT in view of long stented segments and severe diffuse disease. I discussed with the patient and his the critical importance of mandatory dual antiplatelet therapy and not to miss Plavix for any reason without immediate Cardiology consultation. 3. Echo. 4. OMT--guideline directed optimal medical therapy including aspirin, Prasugrel, statin, beta-kraig, and EMIR inhibitor. Dr. Isma Silva Assessment & Plan 75-year-old man with type II diabetes and coronary artery disease presents with acute inferior ST elevation PA. # STEMI - diffuse disease. - Dual antiplatelet therapy with aspirin and Effient - High-dose statin - Beta kraig # Type II diabetes mellitus - 4 times a day capillary blood glucose - Glucose control goals: Random less than 180, fasting less than 140, none less than 70 - Insulin as needed, divided 50-50 long-acting and nutritional/correctional # Diabetic nephropathy - Follow BMP in a.m. after dilated - Maintained good hydration # Hypertension - Beta blockers at present - Consider EMIR inhibitor Disposition: Anticipate discharge to home on 05/13 Pain Evaluation: Adequate Pain Control VTE Prophylaxis: Other Resuscitation Status: CPR: Attempt Resuscitation Time spent 60 min Jayant Cox MD May 12, 2016 17:33
[2016-05-12] MEDS ORDERED: Glucose 40% Oral Gel 15 Gm Tube PO PRN (17:35)
--- NOTE | 2016-05-12 18:10 | NUR ---
STEMI recovery/urine output/activity Pt recovered in stable condition (see CCU flow sheet/interventions). Site soft, non tender with some bruising around site and small amount of oozing. Changed site bandage in afternoon. Pt off bedrest at 12pm, pt up to bathroom with SBA. Denied any dizziness, SOB or CP. Pt voiding 200-300ml at one time in urinal. Output greater than 1000ml. TELE SB-SR with occasional PVCs and one run of 20 beats of vtach. Pt remained asypmtomatic at the time.
[2016-05-12] MEDS: Insulin GLARgine 100 Unit/mL Syringe SUBQ SCH (21:48)
[2016-05-12] MEDS: Insulin LISPRO 300 Unit/3 mL Inj SUBQ SCH (21:49)
[2016-05-13] VITALS (8 sets, daily range): BP systolic 108–160; BP diastolic 56–88; PULSE 57–83; RESP 12–20; O2SAT 92–96
[2016-05-13 04:42] LABS: Mean Corpuscular Volume 97.8 fL (81-100)
--- NOTE | 2016-05-13 06:11 | NUR ---
Activity: pt up in room indep denies pain. rested well through out night.
[2016-05-13] MEDS: Insulin LISPRO 300 Unit/3 mL Inj SUBQ SCH ×4 (08:00→20:49)
--- NOTE | 2016-05-13 10:39 | PROG NOTE ---
[address] [address] PROGRESS NOTE PATIENT: ROSS HAND : 1940 MR#: [id number] ADMIT: 05/12/2016 JOB ID: [id number] DATE: 05/13/2016 CHIEF COMPLAINT: Chest discomfort, status post RCA intervention for an acute inferior VA. SUBJECTIVE: No chest discomfort. No shortness of breath. Feels better. Groin is not bothering him. This gentleman came in yesterday, and Dr. Silva took him to the laboratory. He had a long area of stenting done in his RCA starting from distal RCA to the proximal RCA. He still has significant residual disease in the very distal RCA prior to the crux. His left coronary also shows diffuse disease. The LAD is borderline in severity. The patient states he used to get regular cardiology followup at [facility]. Dr. Nye did an angioplasty presumably on his right coronary artery about 20 years ago. He has since then moved to [place]. He would like to establish local care. He did have ventricular tachycardia documented on the chart yesterday. He has not had any since he had an intervention. OBJECTIVE: On examination, pulse 56, blood pressure 130/70. Neck: Supple. No JVD. Chest: Clear. Heart sounds: S1, S2, regular. No gallops. Groin: Ecchymosis is noted. No significant hematoma. Extremities: Negative for CCE. MANAGER RISK MANAGEMENT: Alert and oriented. Labs were reviewed. His creatinine is 1.36, no significant change. ASSESSMENT AND PLAN: This gentleman is stable post myocardial infarction. He has a severely reduced ejection fraction. Ejection fraction is estimated to be 25% to 30%. He has akinesis of the posterolateral wall and the mid to distal inferior wall, and hypokinesis of the anterolateral wall which is not in keeping with his coronary anatomy because his posterolateral circulation is not as large. I am wondering if this is because of left coronary disease. I would like him to get a stress test. This can be done as an outpatient. I would also like to reintroduce his beta blockers. I would also like to add spironolactone and lastly, the patient was scheduled for a [employer] cruise. I have recommended against it.
--- NOTE | 2016-05-13 14:36 | PCM.PNMED ---
Subjective Date of Service May 13, 2016 Subjective 75-year-old man coronary artery disease, type II diabetes with nephropathy, presents with chest pain, found to have acute ST elevation MT. He has had no further chest complaints. No breathing difficulty. Slept comfortably lying flat in bed last night. Exam Vital Signs Vital Sign - Last Date Time Temp Pulse Resp B/P Pulse Ox O2 Delivery O2 Flow Rate FiO2 05/13/16 11:18 36.5 20 124/77 95 Room Air 05/13/16 10:19 63 05/12/16 12:00 2.00 Intake and Output 05/12/16 05/12/16 05/13/16 Cumulative From/Thru 15:00 23:00 07:00 05/12/16 02:03 - 05/13/16 05:11 Intake Total 1820 ml 200 ml 2020 ml Output Total 1800 ml 5 ml 2305 ml Balance 20 ml 195 ml -285 ml Intake Oral 820 ml 200 ml 1020 ml IV Total 1000 ml 1000 ml Output Urine Total 1800 ml 5 ml 2305 ml # Voids 2 2 # Bowel Movements 0 0 Exam General: Generally healthy elderly man no acute distress HEENT: sclerae anicteric, oral mucosa moist Neck: no JVD Chest: clear to auscultation Cardiac: S1S2, no murmur Abdomen: BS normal, non-tender Extremities: No pitting edema Neuro: A&O, cranial nerves symmetric, motor strength 5/5, coordination normal IVs and Medications Medications Reviewed: Medications were reviewed in detail Lab and Diagnostics Result Diagram: 05/13/1631705/13/16317 12-lead ECG SR at 65, Qw III, II, F; minimal ST elevation in III, QTC 480, T-wave inversion V5-V6 Cardiac Echo Impressions Echocardiogram Report Name: ROSS HAND Study Date: Height: 71 in Hospital Exam Location: [facility] Weight: 182 lb Gender: Male BSA: 2.0 m2 : 1940 Age: 75 yrs BP: 144/76 mmHg Reason For Study: STEMI History: MT Ordering Physician: Performed By: Diana Reina Interpretation Summary 1) Mild concentric ventricular hypertrophy with normal size and severely reduced systolic function (EF 25-30%). 2) Dyskinesis of the entire apex, akinesis of the posterolateral wall, mid to distal inferior wall, and apical anterior wall, and severe hypokinesis of the anterolateral wall. 3) Normal right ventricular size and function. 4) No significant valvular abnormalities. 5) Mildly dilated aortic root (diameter 4.4cm) and ascending aorta (diameter 4.1cm) 6) Findings consistent with ischemic cardiomyopathy. 7) No prior Echo available for comparison. . Additional Diagnostics Coronary catheterization: FINDINGS: 1. LMCA: The left main coronary artery has no obstructive disease, but there is moderate diffuse atherosclerotic plaquing. 2. LAD: The left anterior descending coronary artery tapers distally to reach the apex as a faint vessel. There is a diffuse 80% proximal lesion at the first septal and at the takeoff of a moderate to large (2.5 mm) diagonal. 3. LCX: The left circumflex coronary artery is a large nondominant vessel with diffuse 70-80% mid LCX lesion with TIARA-3 flow. 4. RCA: Dominant. The right coronary artery is a very large vessel with a large posterolateral branch and a large posterolateral branch that reaches the apex. Initially the artery is occluded distally after the acute margin. There is 70% diffuse proximal and mid vessel disease distal to the culprit occlusion. There is a tubular 80% narrowing at the crux bifurcation of PDA and PLV. CONCLUSIONS: 1. PCI with ROMAINE of distal RCA (Xience 2.75 x 18 mm; then Xience 2.75 x 18 mm); and Xience ROMAINE of mid and proximal RCA (3.5 x 28 mm). 2. ACS--inferior STEMI; with sustained ventricular tachycardia. 3. Coronary artery disease (CAD)--3-vessel disease including proximal LAD at bifurcation of diagonal; and mid LCX; and severe diffusely diseased RCA with a culprit distal RCA occlusion. RECOMMENDATIONS: 1. Aspirin--indefinitely. 2. Prasugrel--plan 1 year. If well tolerated including with ongoing cardiology follow up; and to consider lifetime DAPT in view of long stented segments and severe diffuse disease. I discussed with the patient and his the critical importance of mandatory dual antiplatelet therapy and not to miss Plavix for any reason without immediate Cardiology consultation. 3. Echo. 4. OMT--guideline directed optimal medical therapy including aspirin, Prasugrel, statin, beta-kraig, and EMIR inhibitor. Dr. Isma Silva Assessment & Plan 75-year-old man with type II diabetes and coronary artery disease presents with acute inferior ST elevation MT. # STEMI - diffuse disease. Status post ROMAINE in RCA on 05/12. - Dual antiplatelet therapy with aspirin and Effient - High-dose statin - Beta kraig - Continue telemetry monitoring # Type II diabetes mellitus. - 4 times a day capillary blood glucose - Glucose control goals: Random less than 180, fasting less than 140, none less than 70 - Insulin as needed, divided 50-50 long-acting and nutritional/correctional # Diabetic nephropathy. Creatinine 1.27 on admission remained stable in the range of 1.32-1.36. - Follow BMP in a.m. after dilated - Maintained good hydration # Hypertension - Beta blockers at present - Consider EMIR inhibitor Disposition: Anticipate discharge to home on 05/14. VTE Prophylaxis: Other Resuscitation Status: CPR: Attempt Resuscitation Time spent 25 minutes Jayant Cox MD May 13, 2016 14:36
--- NOTE | 2016-05-13 17:25 | NUR ---
TELE/DC The pt remained independent and stable in the room throughout the shift. No pain, groin site intact; TELE SR with pressures holding WNL. Metop held this morning for a HR of 57. The plan is to DC home tomorrow with a follow up stress test with the community service organization director.
[2016-05-13] MEDS: Insulin GLARgine 100 Unit/mL Syringe SUBQ SCH (20:49)
[2016-05-14 03:51] VITALS: BP 120/77; PULSE 60; RESP 16; O2SAT 99
--- NOTE | 2016-05-14 04:44 | NUR ---
Restful Night. Patient requested that I let him sleep as much as possible this evening. Patients room was darkened and the door was closed. Patient was checked on intermittently and found to be without distress or complaint. Patients vitals remained stable and the patient reported no needs at this time.
[2016-05-14 05:40] VITALS: PULSE 65
[2016-05-14 08:00] VITALS: PULSE 66
--- NOTE | 2016-05-14 08:40 | NUR ---
[facility] Signed
--- NOTE | 2016-05-14 09:24 | NUR ---
Social Work: Initial Assessment D: Per EMR review, pt is a 75 year old male admitted for STEMI. Pt is [employer] Medicare with [employer] [facility] insurance; pt has no VA benefits. PCP Is through the [facility]. NOK Is Brittany Alegria, , . Advanced directives not completed- PHARMACY SERVICES DIRECTOR and bedside RN provided information to pt. Readmit score is low, 05/03. PHARMACY SERVICES DIRECTOR met with pt at bedside. Sw role explained. See initial assessment. Pt lives at home with his on [address]. Pt uses no DME, continues to drive and has never had HH or skilled rehab placements. Pt ambulating completely I during admission. Pt has no concerns of discharge home but has questions about any medications that he will be required to take. PHARMACY SERVICES DIRECTOR informed pt that discharge medications and instructions will be reviewed with him prior to departure. Pt has no other questions and has no other concerns. No barriers or needs identified at this time. A: Pt who is I at baseline. P: Anticipate pt to discharge home via POV once medically stable; PHARMACY SERVICES DIRECTOR to continue to follow and assist if needs arise. COLLIN Beltran Addendum: 05/14/16 at 0928 by ABDULKADIR SORENSEN SS Amended: Links added. Addendum: 05/14/16 at 1227 by ABDULKADIR SORENSEN SS Update: Pt discussed in am rounds. Pt is ready for discharge pending medication from Cardiology. wrote prescription and would like PHARMACY SERVICES DIRECTOR to run benefit at pt's pharmacy. PHARMACY SERVICES DIRECTOR faxed prescription to [facility] who states that they pt's copay for Efficient is $372 for a 30 day supply. PHARMACY SERVICES DIRECTOR spoke with pt and about this and they agree that they can pay this OOP expense. PHARMACY SERVICES DIRECTOR updated MD and RN who will complete discharge with pt. No other sw needs identified.
[2016-05-14] MEDS: Insulin LISPRO 300 Unit/3 mL Inj SUBQ SCH (10:02)
--- NOTE | 2016-05-14 11:44 | PCM.DIMED ---
Discharge Instructions Date of Service May 14, 2016 Dates of Hospitalization May 12, 2016 at 02:31 Discharge Diagnosis Discharge Diagnosis 1. STEMI (heart attack) with RCA (right coronary ) stent 2. Chronic systolic heart failure 3. DM 2 4. Hypertension Diet Low fat, Low Sodium, Heart Healthy, Diabetic Activity Limited until seen by PCP Patient Instructions Follow-up Provider: Marino Salter MD Follow-up with PCP in: 2 weeks Jacky Moore MD May 14, 2016 11:44
[2016-05-14] MEDS ORDERED: ATOR40TA69 PO (11:47)
[2016-05-14] MEDS ORDERED: ASPI81TA3 PO (11:47)
[2016-05-14] MEDS ORDERED: NITR0.4T SL (11:47)
[2016-05-14] MEDS ORDERED: PRAS10TA5 PO (11:47)
[2016-05-14] MEDS ORDERED: METO25TA6 PO (11:47)
--- NOTE | 2016-05-14 12:40 | PCM.DC.MED ---
Discharge Summary Date of Service May 14, 2016 Dates of Hospitalization Date of Hospital Admission May 12, 2016 at 02:31 Date of Discharge: May 14, 2016 Providers: Admitting Physician: Isma Silva MD Primary Care Physician: Other,Physician Attending Physician: Isma Silva MD Diagnosis at Time of Discharge Diagnosis at Time of Discharge 1. STEMI (heart attack) with RCA (right coronary ) stent 2. Chronic systolic heart failure 3. DM 2 4. Hypertension 5. Chronic kidney disease stage III Consultations Cardiology, Drs. Silva and Gaetano Procedures XRay, CTs & MRIs Chest x-ray is unremarkable ECG 12 Lead SR at 65, Qw III, II, F; minimal ST elevation in III, QTC 480, T-wave inversion V5-V6 Cardiac Echo Impression Echocardiogram Report Name: ROSS HAND Study Date: Height: 71 in Hospital Exam Location: [facility] Weight: 182 lb Gender: Male BSA: 2.0 m2 : 1940 Age: 75 yrs BP: 144/76 mmHg Reason For Study: STEMI History: [place] Ordering Physician: Performed By: Diana Reina Interpretation Summary 1) Mild concentric ventricular hypertrophy with normal size and severely reduced systolic function (EF 25-30%). 2) Dyskinesis of the entire apex, akinesis of the posterolateral wall, mid to distal inferior wall, and apical anterior wall, and severe hypokinesis of the anterolateral wall. 3) Normal right ventricular size and function. 4) No significant valvular abnormalities. 5) Mildly dilated aortic root (diameter 4.4cm) and ascending aorta (diameter 4.1cm) 6) Findings consistent with ischemic cardiomyopathy. 7) No prior Echo available for comparison. . Invasive Procedures Coronary angiogram on the time of admission revealed a critically stenosed RCA. The patient underwent direct intervention and stenting to the RCA. Please see that operative report for further details. Other Diagnostics Coronary catheterization: FINDINGS: 1. LMCA: The left main coronary artery has no obstructive disease, but there is moderate diffuse atherosclerotic plaquing. 2. LAD: The left anterior descending coronary artery tapers distally to reach the apex as a faint vessel. There is a diffuse 80% proximal lesion at the first septal and at the takeoff of a moderate to large (2.5 mm) diagonal. 3. LCX: The left circumflex coronary artery is a large nondominant vessel with diffuse 70-80% mid LCX lesion with TIARA-3 flow. 4. RCA: Dominant. The right coronary artery is a very large vessel with a large posterolateral branch and a large posterolateral branch that reaches the apex. Initially the artery is occluded distally after the acute margin. There is 70% diffuse proximal and mid vessel disease distal to the culprit occlusion. There is a tubular 80% narrowing at the crux bifurcation of PDA and PLV. CONCLUSIONS: 1. PCI with ROMAINE of distal RCA (Xience 2.75 x 18 mm; then Xience 2.75 x 18 mm); and Xience ROMAINE of mid and proximal RCA (3.5 x 28 mm). 2. ACS--inferior STEMI; with sustained ventricular tachycardia. 3. Coronary artery disease (CAD)--3-vessel disease including proximal LAD at bifurcation of diagonal; and mid LCX; and severe diffusely diseased RCA with a culprit distal RCA occlusion. RECOMMENDATIONS: 1. Aspirin--indefinitely. 2. Prasugrel--plan 1 year. If well tolerated including with ongoing cardiology follow up; and to consider lifetime DAPT in view of long stented segments and severe diffuse disease. I discussed with the patient and his the critical importance of mandatory dual antiplatelet therapy and not to miss Plavix for any reason without immediate Cardiology consultation. 3. Echo. 4. OMT--guideline directed optimal medical therapy including aspirin, Prasugrel, statin, beta-kraig, and JOHN inhibitor. Dr. Isma Silva Brief History Patient has a long-standing history of coronary artery disease. First experienced 25 years ago. Typical angina is infrascapular dull pain. He has not experienced angina recently, but had one episode of transient chest pain approximately 2 weeks ago. On the day of admission he awakened during the night with recurrence of similar chest pain but greater intensity. It is localized to the posterior scapular region, with mild radiation to the front of the chest. There is no associated diaphoresis, nausea or arm radiation. The pain persisted until he arrived to the emergency department and received active anginal therapy. Patient has undergone coronary catheterization and has diffuse disease but underwent drug-eluting stent placement in the RCA. He is currently asymptomatic except for discomfort from lying on his back. Hospital Course 75-year-old man with type II diabetes and coronary artery disease presents with acute inferior ST elevation [place]. # STEMI - diffuse disease. Status post ROMAINE in RCA on 05/12. - Dual antiplatelet therapy with aspirin and Effient - High-dose statin - Beta kraig - Continue telemetry monitoring # Type II diabetes mellitus. - 4 times a day capillary blood glucose - Glucose control goals: Random less than 180, fasting less than 140, none less than 70 - Insulin as needed, divided 50-50 long-acting and nutritional/correctional # Diabetic nephropathy. Creatinine 1.27 on admission remained stable in the range of 1.32-1.36. - Follow BMP in a.m. after dilated - Maintained good hydration # Hypertension - Beta blockers at present - Consider JOHN inhibitor Disposition: Anticipate discharge to home on 05/14. Hospital course. This patient presented with evidence of acute STEMI. The patient underwent coronary intervention with a drug-eluting stent in the RCA in May 12. He had did well in the postprocedure phase without recurrent symptoms of dyspnea or chest pain. The patient has a chronic history of hypertension, diabetes mellitus 2 as well as diabetic retinopathy. He was started on aspirin and Effient as well as high-dose statin and beta kraig. He does have an JOHN inhibitor allergy listed prohibiting John inhibitors. The patient also has evidence of chronic kidney disease stage III with baseline creatinine of 1.27. On the day of discharge he was doing well. Exam Vital Signs (Last) Date Time Temp Pulse Resp B/P Pulse Ox O2 Delivery O2 Flow Rate FiO2 05/14/16 08:00 66 05/14/16 03:51 36.9 16 120/77 99 Room Air 05/13/16 19:32 4.00 93 Exam Normal appearance and in no acute distress. Lungs are clear, normal effort Heart is regular without murmur gallop or rub. Abdomen soft nondistended. Extremities free of edema pedal pulses. Fluent speech. Normal gait Test 05/12/16 02:20 05/12/16 17:50 05/13/16 03:18 05/14/16 04:20 Neutrophils (%) (Auto) 36.7% (40-74) Lymphocytes (%) (Auto) 53.0% (14-46) Monocytes (%) (Auto) 7.5% (4-12) Eosinophils (%) (Auto) 2.2% (0-5) Basophils (%) (Auto) 0.4% (0-3) Prothrombin Time 10.2sec (8.1-12.5) Prothromb Time International Ratio 0.95ratio Activated Partial Thromboplast Time 23.8sec (22.8-33.0) Hemoglobin A1c 7.0% (4.8-5.6) Total Bilirubin 0.4mg/dL (0.0-1.2) Aspartate Amino Transf (AST/SGOT) 21U/L (0-50) Alanine Aminotransferase (ALT/SGPT) 18U/L (0-44) Alkaline Phosphatase 68U/L (25-160) Troponin T 0.010ug/L (0.0-0.011) Pro-B-Type Natriuretic Peptide 168pg/mL (0-376) Total Protein 7.3g/dL (6.4-8.4) Albumin 4.4g/dL (3.4-5.0) Hold Warner Top Tube Received (Received) Magnesium Level 2.1mg/dL (1.6-2.6) White Blood Count 10.2th/mm3 (3.8-10.1) Red Blood Count 3.61mil/mm3 (4.40-5.80) Hemoglobin 11.9g/dL (13.8-17.2) Hematocrit 35.3% (41.0-50.0) Mean Corpuscular Volume 97.8fL (81-100) Mean Corpuscular Hemoglobin 33.0pg (27.0-35.0) Mean Corpuscular Hemoglobin Concent 33.7% (32.0-37.0) Red Cell Distribution Width 12.7% (12.3-15.4) Platelet Count 154bil/L (150-400) Sodium Level 144mEq/L (134-144) Potassium Level 4.1mEq/L (3.5-5.2) Chloride Level 106mEq/L (97-108) Carbon Dioxide Level 25mmol/L (18-29) Blood Urea Nitrogen 24mg/dL (8-27) Creatinine 1.57mg/dL (0.76-1.27) Estimat Glomerular Filtration Rate 46mL/min (>59) Glucose Level 122mg/dL (60-99) Calcium Level 9.4mg/dL (8.5-10.1) Discharge Medications Discharge Medications Aspirin Chew (Aspirin Chew) 81 Mg Chew 81 MG PO DAILY Prescribed by: JACKY QUESADA MD Atorvastatin Calcium (Atorvastatin Calcium) 40 Mg Tablet 80 MG PO HS Prescribed by: JACKY QUESADA MD Metoprolol Tartrate (Metoprolol Tartrate) 25 Mg Tablet 12.5 MG PO BID Prescribed by: JACKY QUESADA MD Prasugrel HCl (Effient) 10 Mg Tablet 10 MG PO DAILY Prescribed by: JACKY QUESADA MD As needed Nitroglycerin SL (Nitrostat) 0.4 Mg Tab.subl 0.4 MG SL Q5MIN PRN PRN For Chest Pain IF SBP > 90 Prescribed by: JACKY QUESADA MD Followup Plan Disposition: Home, with Follow-up plan Cardiology within 2 weeks Discharge Diet: Low fat, Low Sodium, Heart Healthy, Diabetic Discharge Activity: Limited until seen by PCP Follow-up Provider: Marino Salter MD Follow-up with PCP in: 2 weeks Time spent 35 minutes Jacky Quesada MD May 14, 2016 12:40
--- NOTE | 2016-05-14 13:01 | NUR ---
DISCHARGE. Patient left with . All belongings taken with. Discharge instructions and new medications gone over. Prescriptions sent with patient and all questions answered. Instructed patient to call pcp about referral needed by insurance to see [facility] fast food restaurant manager to make an appointment. IV x2 d/c and tele removed.
== END 2016-05-14 13:19 | disposition home or self-care (01) | DRG 247 ==
LOC: SED 02:02 → CCU 02:31 → PCC 12:10
PROVIDERS: ADMIT Internal Medicine Cardiovascular Disease; ATTEND Internal Medicine
PROC: 027035Z Dilation of Coronary Artery, One Artery with Two Drug-eluting Intraluminal Devices, Percutaneous Approach (ICD-10-PCS; principal; 2016-05-12)
PROC: 4A023N7 Measurement of Cardiac Sampling and Pressure, Left Heart, Percutaneous Approach (ICD-10-PCS; 2016-05-12)
PROC: B2111ZZ Fluoroscopy of Multiple Coronary Arteries using Low Osmolar Contrast (ICD-10-PCS; 2016-05-12)
DX: I21.11 ST elevation (STEMI) myocardial infarction involving right coronary artery (principal); I50.22 Chronic systolic (congestive) heart failure; I47.2 Ventricular tachycardia; I12.9 Hypertensive chronic kidney disease with stage 1 through stage 4 chronic kidney disease, or unspecified chronic kidney disease; N18.3 Chronic kidney disease, stage 3 (moderate); I25.10 Atherosclerotic heart disease of native coronary artery without angina pectoris; E11.42 Type 2 diabetes mellitus with diabetic polyneuropathy; Z79.4 Long term (current) use of insulin; E78.5 Hyperlipidemia, unspecified; I25.5 Ischemic cardiomyopathy; E11.22 Type 2 diabetes mellitus with diabetic chronic kidney disease

== ENCOUNTER 2016-09-22 17:28 | Emergency (ER) | payer MEDICARE ==
[~2016-09-22] VITALS: Ht 180.3 cm; Wt 73.6 kg
[~2016-09-22 17:28] MED LIST: ASPI81TA3 PO; ATOR40TA69 PO; METO25TA6 PO; NITR0.4T SL; PRAS10TA5 PO
[2016-09-22 17:32] VITALS: BP 132/78; PULSE 75; RESP 14; O2SAT 100
--- NOTE | 2016-09-22 17:43 | ED.REPORT ---
HPI-Trauma Minor / Fall Date of Service September 22, 2016 ED Provider: Danny Villagran MD 75 y/o male with a hx of UT, CHF, HTN and DM presents to the ED complaining of a fall after feeling dizzy, just prior to arrival. The pt hit his head and has a laceration and swelling over his right eyebrow. The pt states he was standing beside his car, talking to a friend when he fell. He associates his sx with hypotension. He stopped his BP medication a month ago due to sudden weight loss. He denies LOC, numbness or tingling in extremities, neck pain, headache, vertigo, nausea, vomiting and chest pain. The pt is on Aspirin and Prasugrel. His last tetanus shot was 3 years ago. Nursing Notes Stated Complaint: HEAD LACERATION/FALL/ ON BLOOD THINNER/FROM U.C Chief Complaint: Multiple Trauma/Fall Nursing Notes Reviewed: Yes Allergies: Coded Allergies: EMIR Inhibitors (Verified Adverse Reaction, Intermediate, 05/12/16) cough Scheduled Aspirin Chew (Aspirin Chew) 81 Mg Chew 81 MG PO DAILY Atorvastatin Calcium (Atorvastatin Calcium) 40 Mg Tablet 80 MG PO HS Metoprolol Tartrate (Metoprolol Tartrate) 25 Mg Tablet 12.5 MG PO BID Prasugrel HCl (Effient) 10 Mg Tablet 10 MG PO DAILY Scheduled PRN Nitroglycerin SL (Nitrostat) 0.4 Mg Tab.subl 0.4 MG SL Q5MIN PRN PRN For Chest Pain IF SBP > 90 General Time Seen by MD: 17:41 Chief Complaint Fall Hx Obtained From: Patient Arrived By: Walk-in Onset Occurred: Just prior to arrival Caused by: Fall on ground Severity: Current: No pain currently Severity: Maximum: No pain Recent Healthcare: Recent doctor visit Similar Sx Previous: No Past Medical History Past Medical History coronary artery disease (with multiple UT and stenting 20 years ago per patient) Reports: Coronary artery disease, Diabetes mellitus, Hypertension Past Surgical History cardiac stent 20 years ago Bypass Smoking History Never Smoker Social History Alcohol Use: Denies alcohol use Other Social History: Good social support, , Local resident Ambulatory Status Independent Review of Systems Reports: Laceration over right eyebrow Denies: Vertigo Musculoskeletal: Denies: Neck pain Skin: Reports Bruising, Reports Swelling (over right eyebrow) Neurologic: Reports: Dizziness, Denies: Change LOC, Headache, Numbness Complete sys rev & neg: except as marked. Cardiovascular: Denies: Chest pain GI: Denies: Nausea, Vomiting Physical Exam Initial Vital Signs Vital Signs (First) Date Time Temp Pulse Resp B/P Pulse Ox O2 Delivery O2 Flow Rate FiO2 09/22/16 17:32 35.8 75 14 132/78 100 Room Air Initial VS: Reviewed Extremities: Vascular intact, Neuro intact, No swelling, No tenderness General/Constitutional: Awake, Alert, No acute distress Neck: Atraumatic, Full range of motion No midline tendereness. Respiratory / Chest: Atraumatic, Breath sounds NL, Breath sounds = bilat, No respiratory distress, No rales, No rhonchi, No wheezing Cardiovascular: Heart rate NL, Regular rhythm, Heart sounds NL, No gallop, No murmurs, No rubs Skin: No rash, Warm, Dry Trauma / Burn / Environmental: Positive: Ecchymosis (Right eyebrow), Laceration (Rigth eyebrow) Right eyebrow swelling Neurologic: Oriented X3, Speech NL, No motor deficits, No sensory deficits Interpretation & Diagnostics PROCEDURE: MRI BRAIN WITH AND WITHOUT CONTRAST ([id number]) IMPRESSION: 1. 7 mm lesion in the posterior left frontal lobe with imaging characteristics compatible with a small cavernous angioma. 2. No acute intracranial disease process. No acute intracranial hemorrhage. 3. Mild, diffuse volume loss. 4. Mild periventricular and subcortical white matter chronic microvascular ischemic changes. Dictated by: Sarah Land MD, PhD on 09/22/2016 at 21:38 Approved by: Sarah Land MD, PhD on 09/22/2016 at 21:42 Lab Results Interpretation Result Diagram: 09/22/16192509/22/161925 Test 09/22/16 19:26 09/22/16 23:05 White Blood Count 8.8th/mm3 (3.8-10.1) Red Blood Count 3.63mil/mm3 (4.40-5.80) Hemoglobin 11.8g/dL (13.8-17.2) Hematocrit 36.7% (41.0-50.0) Mean Corpuscular Volume 101.1fL (81-100) Mean Corpuscular Hemoglobin 32.5pg (27.0-35.0) Mean Corpuscular Hemoglobin Concent 32.2% (32.0-37.0) Red Cell Distribution Width 14.6% (12.3-15.4) Platelet Count 309bil/L (150-400) Neutrophils (%) (Auto) 78.7% (40-74) Lymphocytes (%) (Auto) 12.3% (14-46) Monocytes (%) (Auto) 6.9% (4-12) Eosinophils (%) (Auto) 1.3% (0-5) Basophils (%) (Auto) 0.6% (0-3) Sodium Level 144mEq/L (134-144) Potassium Level 4.2mEq/L (3.5-5.2) Chloride Level 105mEq/L (97-108) Carbon Dioxide Level 23mmol/L (18-29) Blood Urea Nitrogen 25mg/dL (8-27) Creatinine 1.28mg/dL (0.76-1.27) Estimat Glomerular Filtration Rate 59mL/min (>59) Glucose Level 129mg/dL (60-99) Calcium Level 9.5mg/dL (8.5-10.1) Total Bilirubin 0.5mg/dL (0.0-1.2) Aspartate Amino Transf (AST/SGOT) 43U/L (0-50) Alanine Aminotransferase (ALT/SGPT) 38U/L (0-44) Alkaline Phosphatase 158U/L (25-160) Troponin T < 0.010ug/L (0.0-0.011) Total Protein 7.2g/dL (6.4-8.4) Albumin 3.7g/dL (3.4-5.0) Hold Warner Top Tube Received (Received) Magnesium Level 1.5mg/dL (1.6-2.6) ECG Interpretation ECG Interpretation: Normal sinus rhtyhm. Rate 78. Nonspecific intraventricular conduction delay. Age indeterminate inferior infarct. Lateral leads involved. No change from previous ECG on 05/12/16 Time: 19:13 Interpreted by: ED physician CT Head Interpretation IMPRESSION: 1. 7 mm hyperdensity in the right frontal lobe may represent partially calcified cavernous angioma versus small parenchymal hematoma. Recommend MRI of the brain with and without contrast for further evaluation. 2. Findings recommendations discussed with Dr. Danny Villagran on 09/22/2016 at 1829 hrs. Dictated by: Sarah Land MD, PhD on 09/22/2016 at 18:23 Approved by: Sarah Land MD, PhD on 09/22/2016 at 18:32 Study: Head CT no contrast Interpretation / Wet Read by: Interpret - Radiologist Procedures Laceration Management Time: 22:15 Procedure Performed by: ED physician Consent / Setup / Site Prep: Informed consent provided, Consent from patient , Time-out performed, Hand hygiene observed, Stand sterile technique Location of Wound: Over the right eyebrow Wound Length: 5 cm Local Anesthesia: Lidocaine w epi 1% Wound Preparation: Betadine Debridement: None Irrigation: 50 cc Foreign Body Explore / Removal: Explored for foreign body Repair Skin: Nylon (5O) # Sutures - Skin: 4 Suture Technique: Simple Post-Procedure / Complications: Antibiotic oint applied, Dressing applied, No complications, Condition improved, Tolerated procedure well, Patient stable Re-Eval/Medical Decision Med Decision/Clinical Course 75-year-old male with a syncopal fall resulting in a head laceration. He is on antiplatelet agent and developed a pretty significant forehead hematoma under the laceration. Current on his tetanus, does not have signs or symptoms of an acute infectious process or cardiac problem, did have a 20 point drop in his blood pressure on orthostatics without symptoms. He also was noted to have a low magnesium. Given 2 g of magnesium IV, lacerations repaired. Also received normal saline 1 L. Magnesium is rechecked and better at 1.5. Pt advised this could be result of low mag/dysrhythmia, discussed obs on tele, pt would like to go home. Source of Hx: Old records Re-Evaluation/Progress #1: Time of Eval: 18:30 Re-Evaluation/Progress Note: Rechecked pt. Infomred the pt of the need for an MRI. The pt understands and agrees with the plan. All questions answered. Re-Evaluation/Progress #2: Time of Eval: 23:50 Patient Status: Condition improved Re-Evaluation/Progress Note: Rechecked pt. Discussed lab, imaging results and diagnosis. Informed the pt of the plan to discharge. Pt understands and agrees with plan. F/U instructions and RTER warning given. All questions addressed. Counseled Regarding: Diagnosis, Lab results, Need for follow-up, When/why to return to ED Discharge & Departure Impression: Primary Impression: Syncope Syncope type: unspecified Qualified Code: R55 - Syncope and collapse Additional Impression: Laceration Disposition: Home Discharge Condition All VS Reviewed: Yes Patient Instructions: Acute Wounds (ED), Syncope (ED) Additional Instructions: Emergency Department evaluation included interview, examination, labs ECG and CT brain. No serious injury from fall was identified. We noted a low magnesium level this was supplemented with intravenous magnesium and level was improved. There was no evidence of cardiac dysrhythmia during emergency department stay. Laceration was repaired with sutures. Return to emergency department in 5 days to have sutures removed. Keep wound clean and covered with antibiotic ointment applied daily and then a Band-Aid. Expect bruising around IN forehead to track downward with time and then resolved. It is possible to have delayed presentation of bleeding around the brain for 2 weeks or more after a fall. Return immediately for headaches and vomiting or instability on your feet. Get adequate fluids and take magnesium supplement. Return to emergency department if having episodes of fainting, sit down immediately if you feel faint. Return to emergency department in 5 days to have his stitches out. 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 Apply ice to right eyebrow, keeping ice wrapped in a cloth- this will help decrease swelling. Referrals: OTHER,PHYSICIAN (PCP) (Family) Scribe Attestation Portions of this note were transcribed by Nestor Porter. I, , personally performed the history, physical exam and medical decision-making;I reviewed and confirmed the accuracy of the information in the transcribed note. Signed by Bryson Pro. 09/22/16 23:55 Danny Villagran MD September 22, 2016 17:43 Nestor Porter September 22, 2016 17:52
[2016-09-22] MEDS ORDERED: Lidocaine 1%/Epi 1:100,000 30 mL MDV ONE (18:31)
--- NOTE | 2016-09-22 18:33 | DRSVH ---
PROCEDURE: CT BRAIN WITHOUT CONTRAST ([id number]) INDICATIONS: head injury TECHNIQUE: Noncontrast 4.5 mm thick angled axial sections acquired from the foramen magnum to the vertex, with c oronal reformats. COMPARISON: None. FINDINGS: Image quality: Excellent. CSF spaces: Basal cisterns are patent. No extra-axial fluid collections. The ventricles are symmet leola in size and shape. Brain: Small, proxy 7 mm in diameter hyperdensity noted in the posterior left frontal lobe which may represent a small partially calcified cavernous angioma or small acute bleed. No masses. There is cerebral volume loss for age, with resultant ventricular and sulcal prominence. There are periventri cular and deep white matter chronic small vessel ischemic changes. There is intracranial internal ca rotid artery atherosclerosis. Skull and face: Calvarium and visualized facial bones appear intact, without suspicious lesions. Lar ge right frontal/right periorbital scalp hematoma and small left parietal scalp hematoma noted. Sinuses: Visualized sinuses and mastoids are clear. IMPRESSION: 1. 7 mm hyperdensity in the right frontal lobe may represent partially calcified cavernous angioma v ersus small parenchymal hematoma. Recommend MRI of the brain with and without contrast for further e valuation. 2. Findings recommendations discussed with Dr. Danny Villagran on 09/22/2016 at 1829 hrs. Dictated by: Sarah Land MD, PhD on 09/22/2016 at 18:23 Approved by: Sarah Land MD, PhD on 09/22/2016 at 18:32
[2016-09-22 19:05] VITALS: BP 133/78; PULSE 78
[2016-09-22 19:07] VITALS: BP 108/63; PULSE 106
[2016-09-22] MEDS ORDERED: 0.9% Sodium Chloride 1,000 ML IV ONE (19:10)
[2016-09-22 19:25] VITALS: RESP 16; O2SAT 98
[2016-09-22 19:41] LABS: BASOPHILS % (AUTO) 0.6 % (0-3); EOSINOPHILS % (AUTO) 1.3 % (0-5); MONOCYTES % (AUTO) 6.9 % (4-12); Mean Corpuscular Hemoglobin 32.5 pg (27.0-35.0); Mean Corpuscular Volume 101.1 fL (81-100); NEUTROPHILS % (AUTO) 78.7 % (40-74); Platelet Count 309 bil/L (150-400)
[2016-09-22 20:03] LABS: TROPONIN T < 0.010 ug/L (0.0-0.011)
[2016-09-22 20:30] LABS: Magnesium 0.9 mg/dL (1.6-2.6)
[2016-09-22] MEDS ORDERED: Magnesium Sulf 2 Gm/50mL Water 2 GM in IV Premix 1 EACH IV ONE (20:35)
[2016-09-22] MEDS ORDERED: 0.9% Sodium Chloride 100 ML ONE (21:24)
[2016-09-22 21:34] VITALS: BP 157/80; PULSE 74; RESP 16; O2SAT 99
--- NOTE | 2016-09-22 21:44 | DRSVH ---
PROCEDURE: MRI BRAIN WITH AND WITHOUT CONTRAST ([id number]) INDICATIONS: head injury suspicion of bleed TECHNIQUE: Noncontrast axial T1 spin echo, axial T2 fast spin echo, sagittal and axial FLAIR, coronal T2 fast sp in echo, axial gradient echo, axial diffusion and ADC through the brain. After the administration of contrast, axial and coronal 3D VIBE or T1 spin echo with fat saturation through the brain. COMPARISON: None. FINDINGS: Image quality: Excellent. CSF Spaces: Basal cisterns are patent. No extra-axial fluid collections. Ventricles are normal in size and shape. Brain: No midline shift. No intracranial bleeds or masses. No abnormal intracranial enhancement. The brainstem appears normal. Diffusion-weighted images demonstrate no acute ischemic insults. No ar eas of encephalomalacia. A few, scattered, punctate foci of increased T2 signal noted in the periven tricular white matter tracts and subcortical white matter tracts. 7 mm lesion is noted in the auto dealer ior left frontal lobe which has predominantly hypointense signal on all sequences. No significant po stcontrast enhancement associated with the lesion. Lesion demonstrates susceptibility hypointensity. Normal intravascular flow voids are present. Skull and face: Calvarial marrow is normal in signal. Orbits appear normal. Right frontal/right per iorbital facial soft tissue swelling noted compatible with recent trauma. Sinuses: Sinuses and mastoids appear clear. IMPRESSION: 1. 7 mm lesion in the posterior left frontal lobe with imaging characteristics compatible with a sma ll cavernous angioma. 2. No acute intracranial disease process. No acute intracranial hemorrhage. 3. Mild, diffuse volume loss. 4. Mild periventricular and subcortical white matter chronic microvascular ischemic changes. Dictated by: Sarah Land MD, PhD on 09/22/2016 at 21:38 Approved by: Sarah Land MD, PhD on 09/22/2016 at 21:42
[2016-09-22 23:22] VITALS: BP 148/67; PULSE 78; RESP 17; O2SAT 97
[2016-09-23] MEDS ORDERED: MAGN400T23 PO (00:05)
[2016-09-23 00:17] VITALS: BP 146/77; PULSE 79; RESP 19; O2SAT 96
== END 2016-09-23 00:18 | disposition home or self-care (01) ==
LOC: SED 17:28
DX: R55 Syncope and collapse (principal); S01.111A Laceration without foreign body of right eyelid and periocular area, initial encounter; W18.39XA Other fall on same level, initial encounter; Y93.89 Activity, other specified; Y92.89 Other specified places as the place of occurrence of the external cause; Y99.8 Other external cause status; I95.9 Hypotension, unspecified; I11.0 Hypertensive heart disease with heart failure; E11.59 Type 2 diabetes mellitus with other circulatory complications; I50.9 Heart failure, unspecified; I25.10 Atherosclerotic heart disease of native coronary artery without angina pectoris; I25.2 Old myocardial infarction; Z95.1 Presence of aortocoronary bypass graft; Z79.82 Long term (current) use of aspirin; Z88.8 Allergy status to other drugs, medicaments and biological substances
CPT/HCPCS: 12013; 36415; 70450; 70553; 80053; 83735; 84484; 85025; 93005; 96361; 96365; 99285; A9585; G0463; J7030

== ENCOUNTER 2016-09-28 12:28 | Emergency (ER) | payer MEDICARE ==
[~2016-09-28] VITALS: Ht 180.3 cm; Wt 75.0 kg
[~2016-09-28 12:28] MED LIST changes: +MAGN400T23 PO
[2016-09-28 12:36] VITALS: BP 138/86; PULSE 94; RESP 20; O2SAT 97
--- NOTE | 2016-09-28 13:07 | ED.REPORT ---
HPI-Recheck W/B/S Date of Service Sep 28, 2016 ED Provider: Aaron Saenz History of Present Illness: 75yo male here for R eyebrow suture removal, placed on 09/22. Feels well, no complaints Nursing Notes Stated Complaint: SUTURE REMOVAL Chief Complaint: Wound Recheck/Suture Removal Nursing Notes Reviewed: Yes Allergies: Coded Allergies: EMIR Inhibitors (Verified Adverse Reaction, Intermediate, 05/12/16) cough Scheduled Aspirin Chew (Aspirin Chew) 81 Mg Chew 81 MG PO DAILY Atorvastatin Calcium (Atorvastatin Calcium) 40 Mg Tablet 80 MG PO HS Magnesium Oxide (Mag-Oxide) 400 Mg Tablet 400 MG PO DAILY Metoprolol Tartrate (Metoprolol Tartrate) 25 Mg Tablet 12.5 MG PO BID Prasugrel HCl (Effient) 10 Mg Tablet 10 MG PO DAILY Scheduled PRN Nitroglycerin SL (Nitrostat) 0.4 Mg Tab.subl 0.4 MG SL Q5MIN PRN PRN For Chest Pain IF SBP > 90 General Time Seen by Provider: 13:00 Chief Complaint Suture removal Hx Obtained From: Patient Arrived By: Walk-in Severity: Current: No pain currently Pertinent Negative: Pt denies other symptoms Past Medical History Past Medical History coronary artery disease (with multiple ID and stenting 20 years ago per patient) Reports: Coronary artery disease, Diabetes mellitus, Hypertension Past Surgical History cardiac stent 20 years ago Bypass Smoking History Never Smoker Social History Alcohol Use: Denies alcohol use Other Social History: Good social support, , Local resident Ambulatory Status Independent Review of Systems Constitutional: Denies: Fever Respiratory: Denies: Shortness of breath Cardiovascular: Denies: Chest pain GI: Denies: Abdominal pain Physical Exam Physical Exam Notes: resolving R periorbital bruising noted Initial Vital Signs Vital Signs (First) Date Time Temp Pulse Resp B/P Pulse Ox O2 Delivery O2 Flow Rate FiO2 09/28/16 12:36 36.8 94 20 138/86 97 Room Air Initial VS: Reviewed Procedures Procedure Notes: easily removed 4 simple sutures in R eyebrow Suture Removal Time: 13:10 Procedure Performed by: Allied health pract Wound Condition: Good healing, No sign of infection Number Removed: Removed sutures, 4 Re-Eval/Medical Decision Counseled Regarding: Diagnosis, When/why to return to ED Discharge & Departure Impression: Primary Impression: Encounter for removal of sutures Disposition: Home Patient Instructions: Stitches Removal (DC) Additional Instructions: Keep clean and dry, but daily gentle soap and water is ok. The residual scabing should flake off in 10-14 days. Follow up as needed. Referrals: OTHER,PHYSICIAN (PCP) Other as needed EDSupervising Provider for APC: Markel Davis MD, Christopher R PAC Sep 28, 2016 13:07
== END 2016-09-28 13:17 | disposition home or self-care (01) ==
LOC: SED 12:28
DX: Z48.02 Encounter for removal of sutures (principal)

== ENCOUNTER 2016-10-11 09:39 | Emergency (ER) | payer MEDICARE ==
[~2016-10-11] VITALS: Ht 180.3 cm; Wt 75.0 kg
[2016-10-11 09:44] VITALS: BP 154/95; RESP 20; O2SAT 97
--- NOTE | 2016-10-11 09:52 | ED.REPORT ---
HPI-General Illness Date of Service Oct 11, 2016 ED Provider: Luis Felipe Baron DO The pt is a 76 y/o male w/ a hx of HTN, diabetes, and coronary artery disease presenting to the ED complaining of epistaxis onset a week ago. He is bleeding from his L nostril w/ the blood going down his throat. The pt has been experiencing the nose bleeding intermittently for the last week but blew his nose this morning which caused a scab to come out and cause this current episode. Nursing Notes Stated Complaint: BLOODY NOSE Chief Complaint: ENT & Mouth Nursing Notes Reviewed: Yes Allergies: Coded Allergies: EMIR Inhibitors (Verified Adverse Reaction, Intermediate, 10/11/16) cough Scheduled Aspirin Chew (Aspirin Chew) 81 Mg Chew 81 MG PO DAILY Atorvastatin Calcium (Atorvastatin Calcium) 40 Mg Tablet 80 MG PO HS Magnesium Oxide (Mag-Oxide) 400 Mg Tablet 400 MG PO DAILY Metoprolol Tartrate (Metoprolol Tartrate) 25 Mg Tablet 12.5 MG PO BID Prasugrel HCl (Effient) 10 Mg Tablet 10 MG PO DAILY Scheduled PRN Nitroglycerin SL (Nitrostat) 0.4 Mg Tab.subl 0.4 MG SL Q5MIN PRN PRN For Chest Pain IF SBP > 90 General Time Seen by MD: 09:52 Chief Complaint Other (Nose bleed ) Hx Obtained From: Patient Arrived By: Walk-in Sudden in Onset?: Yes Onset Occurred: Just prior to arrival Symptom Duration: Since onset Recent Healthcare: No recent hospitalization, Recent doctor visit Similar Sx Previous: No Past Medical History Past Medical History coronary artery disease (with multiple AL and stenting 20 years ago per patient) Reports: Coronary artery disease, Diabetes mellitus, Hypertension Past Surgical History cardiac stent 20 years ago Bypass Smoking History Never Smoker Social History Alcohol Use: Denies alcohol use Other Social History: Good social support, , Local resident Ambulatory Status Independent Review of Systems Full Review of Systems Ears / Nose / Throat: Reports: Nose bleeding (L nostril ) Complete sys rev & neg: except as marked. Physical Exam Vital Signs Vital Signs Date Time Temp Pulse Resp B/P Pulse Ox O2 Delivery O2 Flow Rate FiO2 10/11/16 10:47 86 15 142/88 96 Room Air 10/11/16 09:44 36.8 97 20 154/95 97 Room Air Initial VS: Reviewed General/Constitutional: Well-developed, Well-nourished Head / Eyes: Atraumatic, Normocephalic, PERRL Neck: Supple, Non-tender, Full range of motion Respiratory: Breath sounds normal, Clear to auscultation, No respiratory distress Cardiovascular: Regular rate & rhythm, Heart sounds normal, Intact distal pulses Abdomen / GI: Soft, Non-tender, No guarding, No rebound, No distention Back: No CVA tenderness Extremities: Vascular intact, Neuro intact, No swelling, No tenderness Skin: Warm, Dry, No cyanosis Neurologic: Alert, Oriented, Nonfocal Psychiatric: Mood/affect normal, Behavior normal, Normal thought content ENT: Airway patent Nose: Positive: Epistaxis left R nare clear Scant dried blood in posterior oropharynx Re-Eval/Medical Decision Time of Eval: 10:18 Re-Evaluation/Progress Note: Pt rechecked. Two sprays of Afrin were applied in each nare and a clamp was applied. Time of Eval: 10:35 Re-Evaluation/Progress Note: Pt rechecked. Bleeding has stopped. Counseled Regarding: Diagnosis, Lab results, Need for follow-up, When/why to return to ED Discharge & Departure Primary Impression: Epistaxis Disposition: Home Discharge Condition All VS Reviewed: Yes Condition: Stable Additional Instructions: Thank you for coming into the ED today. If you begin bleeding again use the clamp and medication while leaning forward so the blood does not run down yor throat. If it continues to bleed for longer than ten minutes please return to the ED. You can continue to take your blood thinning medication. Try to avoid coughing, sneezing, blowing your nose or exerting yourself too much to prevent future bleeding. Follow up with ENT doctors if you develop any further questions. Referrals: OTHER,PHYSICIAN (PCP) [facility] Res[facility] Scribe Attestation Portions of this note were transcribed by Saul Hastings. I, Dr. Briscoe personally performed the history, physical exam and medical decision-making; I reviewed and confirmed the accuracy of the information in the transcribed note. Signed by : Bryson Dasilva, 10/11/16 and 1018. copies to: [facility] Haris Briscoe DO Oct 11, 2016 09:52 Saul Hastings Oct 11, 2016 10:08
[2016-10-11 10:47] VITALS: BP 142/88; PULSE 86; RESP 15; O2SAT 96
== END 2016-10-11 10:49 | disposition home or self-care (01) ==
LOC: SED 09:39
DX: R04.0 Epistaxis (principal); I11.0 Hypertensive heart disease with heart failure; E11.59 Type 2 diabetes mellitus with other circulatory complications; I25.10 Atherosclerotic heart disease of native coronary artery without angina pectoris; I25.2 Old myocardial infarction; Z95.1 Presence of aortocoronary bypass graft; Z79.82 Long term (current) use of aspirin; Z88.8 Allergy status to other drugs, medicaments and biological substances